=== PATIENT | male | born 1990 | race African-American/Black ===

== ENCOUNTER → 2024-10-19 | Outpatient (CLI) | payer OTHER ==
--- NOTE | 2024-10-19 11:53 | CA ---
Exercise Stress Test Report Name: Wil Dmaian Exam Date: 10/19/2024 09:31 Exam Location: [facility] Ht (in): 69 Wt (lb): 325 BSA: 2.54 Ordering Phys: Ariel Mercer MD Referring Phys: Raúl [place] Technologist: Carrington Slaughter Age: 34 Gender: M : 1990 Procedure CPT: Indications: Z82.49 family hx heart disease ICD-10 Codes: Patient History: Medications: WELBUTRIN, LISINOPRIL, METFORMIN, TRAZADONE Meds past 24 hrs: Pretest Chest Pain: STRESS TEST Ashish Protocol Exercise Duration (min:sec): 08:[address] Depressions (mm): Angina Score: Baca Score: Resting HR (bpm): 115 Peak HR (bpm): 170 Resting BP (mmHg): 120 / 57 Peak BP (mmHg): 187 / 80 MPHR: 188 Target HR: 160 % MPHR: 90 METS: 9.7 Total Dose: Peak Dose: Atropine: Double Product: 83250 BP Response: Stress Termination: Reached target heart rate Stress Symptoms: No chest pain or symptoms Stress Summary: ECG ANALYSIS Resting ECG: Stress ECG: CONCLUSIONS Baseline EKG revealed normal sinus rhythm without significant ST-T changes. Patient walked on a standard Ashish protocol for 8 minutes. Resting heart rate was 115 bpm and peak heart rate was 170 bpm. Resting blood pressure was 120/57. Peak blood pressure was 187/80. He did not have any angina. There was no significant arrhythmia. Exercise capacity is somewhat suboptimal for a 34-year-old. This is a negative stress test without evidence of ischemia with somewhat suboptimal exercise capacity Dr. Phillip Holguin MD (Electronically Signed) Final Date: 19 October 2024 11:52
== END | disposition home or self-care (01) ==
LOC: RADNMMAIN 08:24
PROVIDERS: ATTEND Family Medicine
DX: R07.9 Chest pain, unspecified (principal); Z82.49 Family history of ischemic heart disease and other diseases of the circulatory system
CPT/HCPCS: 93017

== ENCOUNTER → 2024-11-24 | Outpatient (CLI) | payer OTHER ==
[2024-11-24 14:19] VITALS: BP 110/76; PULSE 107; RESP 12; TEMP 98.5
--- NOTE | 2024-11-24 14:43 | P.SLEEP ---
History of Present Illness DATE: 11/24/2024 CONSULTATION/NEW PATIENT EVALUATION HISTORY OF PRESENT ILLNESS/SLEEP-WAKE EVALUATION: 34-year-old gentleman had be en evaluated in the sleep center for possible obstructive sleep apnea hypopnea syndrome. SLEEP SCHEDULE: Usually sleep schedule from 10 PM to 6 AM 7 days a week. FALLING ASLEEP: Patient does have problems with falling asleep, has TV set in bedroom. DURING SLEEP: Patient has loud snoring, witnessed episodes of stop breathing during the sleep. Patient wakes up from sleep 7 times with up to 4 episodes of nocturia, dry mouth, gasping for air. No history of hypnogogical hallucinations, sleep paralysis, or cataplexy. DURING THE DAY/WAKE STATE: In the morning patient wake up tired, has difficul ties to pay attention, has problems with memory, concentration, depression and anxiety.. [place] sleepiness scale is increased to 12. Patient takes no naps during the day. PAST MEDICAL HISTORY: Diabetes mellitus, anxiety. PAST SURGICAL HISTORY: None. MEDICATIONS: Please see below. SOCIAL HISTORY: Please see below. FAMILY HISTORY: Please see below. REVIEW OF SYSTEMS: Loud snoring, multiple awakenings from sleep, sleepiness during the day. No fevers. No double vision. No recent chest pain. No shortness of breath. No abdominal pain. No bleeding episodes. No blood in urine. No seizur e episodes. PHYSICAL EXAMINATION: GENERAL: A pleasant patient without any distress. VITAL SIGNS: Please see below, weight 325 pounds, BMI 47.9. HEENT: PERRLA, EOMI. Evaluation of oropharynx showed tongue protrudes midline, low position of soft palate Mallampati 4. NECK: Supple. No JVD. Thyroid is not palpable. 19.5 inches in circumference. LUNGS: Clear to percussion and to auscultation. Good air exchange. No wheezing or rhonchi. HEART: S1, S2 regular. No murmurs, gallops or rubs. ABDOMEN: Soft and nontender. Bowel sounds are present. No organomegaly appreciated. EXTREMITIES: No clubbing or cyanosis. 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 Cranial nerves 2 to 7 intact. There is no fasciculation or atrophy noted. No focal deficits observed. ASSESSMENT: 1. Loud snoring, witnessed episodes of stop breathing during sleep, extremely low position of soft palate Mallampati 4, wide neck 19.5 inches in circumference, sleepiness with [place] Sleepiness Scale 12. Obstructive sleep apnea hypopnea syndrome. 2. Obesity, BMI 47.9. 3. Diabetes mellitus. 4. Anxiety. PLAN: 1. Polysomnography for evaluation of patient's breathing during sleep. 2. Following plan after reading sleep study. 3. Preferable position during sleep on the side. 4. No driving if patient feels any sleepiness. Patient is aware of civil and criminal liability for unsafe driving. 5. Sleep hygiene with regular sleep time for at least 7.5-8 hours. 6. Watching and losing weight. Thank you very much for referring this patient for consultation. Sincerely, Davin Horvath MD, PhD, FAASM. Diplomat of [employer], Sleep Medicine Board by [employer] [facility] [place] cc: Avery Worthington MD Past Medical History Past Medical History: Diabetes Mellitus History of Any Multi-Drug Resistant Organisms: None Reported Past Surgical History: No Surgical Hx Reported Past Anesthesia/Blood Transfusion Reactions: No Reported Reaction Past Psychological History: Anxiety, Depression Smoking Status: Former smoker Past Alcohol Use History: Occasional Past Drug Use History: None Reported Medications and Allergies Home Medications Medication Instructions Recorded Confirmed Type Tirzepatide [Mounjaro] 5 mg SQ 11/24/24 History buPROPion [Wellbutrin] 75 mg PO BID 11/24/24 11/24/24 History Allergies Allergy/AdvReac Type Severity Reaction Status Date / Time Penicillins Allergy Intermediate Rash/Hives Unverified 11/24/24 14:16 Physical Exam Vitals: Vital Signs Temp Pulse Resp BP Pulse Ox 11/24/24 14:17 98.5 F 107 H 12 110/76 98 Intake and Output 11/23/24 11/24/24 11/24/24 22:59 06:59 14:59 Other: Weight 147.418 kg Sleep Note - Sleep Data ESS Total: 12 - Sleep Note Sleep Note: Temperature: 98.5 F Pulse Rate: 107 Respiratory Rate: 12 Blood Pressure: 110/76 SpO2: 98 Height: 5 ft 9 in Weight: 147.418 kg BMI: Neck Circumference: 19.5
== END ==
LOC: 3 N SLEEP 13:38
PROVIDERS: ATTEND Internal Medicine
DX: E11.9 Type 2 diabetes mellitus without complications (principal); G47.33 Obstructive sleep apnea (adult) (pediatric); E66.9 Obesity, unspecified; K21.9 Gastro-esophageal reflux disease without esophagitis; Z68.42 Body mass index [BMI] 45.0-49.9, adult; Z88.0 Allergy status to penicillin
CPT/HCPCS: 99211

== ENCOUNTER → 2024-12-23 | Outpatient (CLI) | payer OTHER ==
--- NOTE | 2024-12-23 09:08 | US ---
EXAMINATION TYPE: US scrotum with doppler. DATE OF EXAM: 12/23/2024 COMPARISON: NONE CLINICAL INDICATION: Male, 34 years old with history of N50.9 DISORDER OF MALE GENITAL ORGANS, UNSPEC IFIED; vibration in right testicle 4 days ago, no swelling, no pain, h/o torsion 18 years ago TECHNIQUE: Grayscale, color Doppler and spectral Doppler imaging of the scrotum. FINDINGS: EXAM MEASUREMENTS: TESTICLES: Right Testicle: 3.5 x 3.6 x 2.3cm Left Testicle: 4.3 x 3.5 x 2.9cm Normal homogeneous appearance to both testicles. No hyperemia. EPIDIDYMIS HEAD: Right Epididymis:1.0cm Left Epididymis: 1.0cm Doppler performed to assess for testicular vascularity; good bilateral color flow and spectral wavefo eliza are seen. There is no evidence of testicular torsion. Presence of hydroceles: no Presence of varicoceles: no IMPRESSION: Unremarkable sonographic examination of the testicles/scrotum. No evidence for testicular torsion or epididymoorchitis. [facility], , 12/23/2024 9:06 AM
== END | disposition home or self-care (01) ==
LOC: RADUSWWP 08:02
PROVIDERS: ATTEND Family Medicine
DX: N50.9 Disorder of male genital organs, unspecified (principal)
CPT/HCPCS: 76870; 93975

== ENCOUNTER → 2025-01-06 | Outpatient (CLI) | payer OTHER ==
--- NOTE | 2025-01-13 13:52 | P.PCN ---
Description of Procedure: CLINICAL: A home sleep apnea test has been done for confirmation of possible obstructive sleep apnea-hypopnea syndrome. DESCRIPTION OF PROCEDURE: RESULTS: Recording time was 8 hours 28 minutes. Evaluation time was 8 hours 17 minutes. Evaluation time is sufficient for making conclusion about results of the test. Raw data of sleep recording has been reviewed and is adequate. Respiratory channel showed 69 apneas and 327 hypopneas. Apnea-hypopnea index was 11.8 per hour. Pulse rate in the range between minimum 71, maximum 133, average 88 by computer calculation. Lowest desaturation was 80%. IMPRESSION: 1. Severe Obstructive Sleep Apnea Hypopnea Syndrome. 2. Obesity, BMI 47.9 Please see other impressions from consultation. PLAN: 1. The patient should have PAP titration for correction of respiratory abnormallities during sleep. 2. Sleep hygiene with regular time in bed for at least 8 hours. 3. Watching and aggressive losing weight. 4. No driving if feeling any sleepiness. Thank you very much for allowing me to participate in the management of your patient. Sincerely, Davin Horvath MD, PhD, FAASM Diplomat of [employer] Sleep Medicine Board of [employer] Call Center [facility] [place] cc: Avery Worthington MD
== END | disposition home or self-care (01) ==
LOC: 3 N SLEEP 16:09
PROVIDERS: ATTEND Internal Medicine
DX: G47.33 Obstructive sleep apnea (adult) (pediatric) (principal); E66.9 Obesity, unspecified; Z68.42 Body mass index [BMI] 45.0-49.9, adult; Z88.0 Allergy status to penicillin